=== PATIENT | female | born 1975 | race Caucasian/White ===

== ENCOUNTER 2020-03-21 10:14 | Outpatient (CLI) | payer BC, SELFPAY ==
--- NOTE | ~2020-03-21 | MM_ITS ---
EXAMINATION: MM screening thad BI w woodrow HISTORY: Screening TECHNIQUE: Craniocaudal and mediolateral oblique 3-D tomosynthesis images were obtained and synthetic 2-D images were generated. CAD analysis was submitted and interpreted. COMPARISON: Comparison to multiple prior studies sequentially, with oldest reviewed study dated 08/19. BREAST PARENCHYMAL COMPOSITION: There are scattered areas of fibroglandular density. FINDINGS: There is no evidence of suspicious mass, calcification, or architectural distortion to sugg est malignancy in either breast. There has been no suspicious interval change. IMPRESSION: 1. No mammographic evidence of malignancy. 2. Recommend routine screening mammography in one year. BI-RADS Category 1: Negative Reviewed, dictated and finalized at location A. OR SEAGRASS GATHERER
== END 2020-03-21 10:15 | disposition home or self-care (01) ==
PROVIDERS: PCP Family Medicine; Visit Provider Nurse Practitioner Obstetrics & Gynecology
DX: Z12.31 Encounter for screening mammogram for malignant neoplasm of breast (principal)
CPT/HCPCS: 77063; 77067

== ENCOUNTER 2020-07-12 07:21 | Observation (INO) | payer BC, SELFPAY ==
[2020-07-12] VITALS (21 sets, daily range): BP systolic 104–150; BP diastolic 69–89; PULSE 82–105; RESP 13–26; TEMP 36.1–36.8; O2SAT 93–98; BMI 41.6
--- NOTE | ~2020-07-12 | CT_ITS ---
EXAMINATION: CT brain wo con DATE: 07/12/2020 08:50 INDICATION: Encephalopathy with slowed responses. COVID positive. TECHNIQUE: Computed tomography (CT) of the head was performed without intravenous contrast. Sagittal and coronal reconstructions were performed. The mA was adjusted according to patient size. Iterative reconstruction technique was employed. The dose-length product was 605.33 mGy-cm. COMPARISON: None FINDINGS: No acute intracranial hemorrhage, acute infarction or abnormal extra axial fluid collection. Ventricl es are normal and symmetric. No mass/mass effect. The orbits, paranasal sinuses and mastoid air cells are normal. IMPRESSION: 1. Normal head CT. Reviewed, dictated and finalized at location A. IMPRESSION: 1. Normal head CT.
--- NOTE | ~2020-07-12 | XR_ITS ---
XR chest 1V portable DATE: 07/12/2020 07:56 INDICATION: Dyspnea, cough. Covid-positive patient. TECHNIQUE: Portable upright AP chest on 07/12/2020 at 0749 hours COMPARISON: None FINDINGS: There are are mild infiltrates in both lower lung zones. No pleural effusion. Heart size no rmal. No pneumothorax. IMPRESSION: Bilateral lower lung infiltrates Reviewed, dictated and finalized at location A.
--- NOTE | 2020-07-12 07:18 | ED.SOB ---
HPI - SOB/Dyspnea General Chief Complaint: Shortness of Breath/Dyspnea Stated Complaint: COVID +, SOB Source: patient and EMS Mode of arrival: EMS Limitations: no limitations History of Present Illness HPI Narrative: Patient is a 45-year-old female with a history of Covid who presents for evaluation of shortness of breath. Patient diagnosed 9 days previously with Covid. Patient states that her is also positive for Covid. She has had increasing shortness of breath at rest and worsening with exertion. Patient does not wear oxygen at home. Patient states that she could not catch her breath. EMS was called by the patient this morning, found to be 90% on room air. Patient transported in stable condition. Patient denying any pain. Patient states she has felt febrile and sweaty. No headache or chest pain. No vision changes. She reports diarrhea. She denies abdominal pain. She denies loss of sense of taste or smell. She does report mild rhinorrhea. Currently patient states she feels warm and that she may pass out. Vital signs stable on monitor. Related Data Home Medications Medication Instructions Recorded Confirmed clonazepam 0.125 mg PO DAILY 07/12/20 sertraline 25 mg PO DAILY 07/12/20 trazodone 50 mg PO BID 07/12/20 venlafaxine 25 mg PO BID 07/12/20 Allergies Allergy/AdvReac Type Severity Reaction Status Date / Time No Known Drug Allergies Allergy Verified 07/12/20 08:35 Review of Systems Review of Systems: Narrative: CONSTITUTIONAL: Reports fever, chills, diaphoresis EYES: Denies visual changes, redness, or discharge. ENT: Reports rhinorrhea and congestion CARDIOVASCULAR: Denies chest pain, palpitations, or edema. RESPIRATORY: Reports cough and shortness of breath GASTROINTESTINAL: Denies abdominal pain, nausea, vomiting, reports diarrhea GENITOURINARY: Denies dysuria or hematuria. SKIN: Denies rash or itching. MUSCULOSKELETAL: Denies back pain, joint pain, reports myalgias NEUROLOGIC: Denies headache, numbness, or weakness. [facility] Social History Social History Gender identity (if verbalized by the patient): Female Exam Narrative: Exam Narrative: GENERAL: Awake, alert, conversant, diaphoretic HEAD: Normocephalic, atraumatic. EYES: PERRLA and EOMI. ENT: Nares clear, no rhinorrhea or epistaxis. Mucous membranes moist. NECK: Supple. CHEST:Tachypnea, Borderline hypoxia, able to speak in full sentences, no wheezing or crackles noted HEART: Regular rate, sinus rhythm ABDOMEN:Non distended, non tender EXTREMITIES: Normal range of motion. No edema. SKIN: Warm, dry, no rash. NEURO:No focal deficits. Alert and oriented x3 Course Vital Signs Vital signs: Vital Signs Temperature 36.8 C 07/12/20 07:13 Pulse Rate 104 H 07/12/20 07:13 Respiratory Rate 20 07/12/20 07:13 Blood Pressure 104/76 07/12/20 07:13 Pulse Oximetry 95 07/12/20 07:13 Temperature 36.8 C 07/12/20 07:13 Pulse Rate 92 07/12/20 09:56 Respiratory Rate 18 07/12/20 09:56 Blood Pressure 114/82 07/12/20 09:12 Pulse Oximetry 98 07/12/20 09:56 MDM - SOB/Dyspnea MDM Narrative Medical decision making narrative: Patient presented for evaluation of shortness of breath in the setting of recently diagnosed Covid. At the time of assessment, patient is tachycardic, mildly hypoxic on room air with oxygen saturations ranging from 90 to 92% at rest. Patient with mild tachypnea. Coarse breath sounds bilaterally. She is quite diaphoretic. Patient denies any other pain. Patient's mental status seems somewhat off even though she is alert and oriented to person, place, and to time. She denies any headache, no focal deficits on exam. Did obtain a CT head without any acute intracranial normalities. Chest x-ray consistent with Covid pneumonia with bilateral lower lobe infiltrates. No severe electrolyte derangement. She does have mild hypokalemia. Patient refused to provide urinalysis in the ER. Perhaps there
--- NOTE | 2020-07-12 07:22 | ECG_ITS ---
Measurements Intervals [place] Rate: 89 P: 44 RI: 157 QRS: 7 QRSD: 82 T: 32 QT: 357 QTc: 435 Interpretive Statements SINUS RHYTHM BASELINE WANDER- I, II, AVR, AVL, AVF, V3-V6 BORDERLINE ECG Electronically Signed On 07-12-2020 8:30:06 CDT by Alexx Charles D.O.
[2020-07-12 07:45] LABS: Basophils Percent Auto 0.4 % (0.2-1.2); Eosinophils Percent Auto 0.6 % (0-4.4); Hemoglobin 15.4 g/dL (12.0-15.0); Immature Granulocyte Absolute 0.03 K/mm3 (0.00-0.031); Immature Granulocyte Percent A 0.6 % (0-0.5); Lymphocytes Absolute Auto 0.79 K/mm3 (0.9-3.2); Lymphocytes Percent Auto 16.2 % (18.3-44.2); Mean Corpuscular HGB Conc 33.5 g/dl (32-36); Mean Corpuscular Hemoglobin 28.9 pg (26-34); Mean Corpuscular Volume 86.3 fl (80-100); Mean Platelet Volume 11.4 fl (7.4-10.4); Monocytes Absolute Auto 0.4 K/mm3 (0.1-0.6); Monocytes Percent Auto 7.4 % (2.6-8.5); Neutrophils Absolute Auto 3.7 K/mm3 (1.3-6.7); Neutrophils Percent Auto 74.8 % (45.5-73.1); Platelet Count Result 156 k/mm3 (150-375); Red Blood Count 5.33 M/mm3 (4.2-5.4); Red Cell Distribution Width 13.9 % (11.5-14.5); White Blood Count 4.9 K/mm3 (4.5-10.0)
[2020-07-12 07:55] LABS: INR 0.9; Prothrombin Time 12.4 Seconds (11.1-14.7)
[2020-07-12 07:56] LABS: Partial Thromboplastin Time 31.6 SECONDS (22.3-36.8)
[2020-07-12 07:58] LABS: Alanine Aminotransferase 34 U/L (4-35); Albumin Level 4.1 g/dL (3.5-5.1); Alkaline Phosphatase 94 U/L (38-126); Anion Gap 10 mmol/L (8-16); Aspartate Amino Transferase 57 U/L (14-36); Bilirubin,Total 0.4 mg/dL (0.2-1.3); Blood Urea Nitrogen 9 mg/dL (7-17); CRP 1.5 mg/dL (<1.0); Calcium 8.7 mg/dL (8.4-10.2); Carbon Dioxide 26 mmol/L (22-30); Chloride 103 mmol/L (98-107); Estimated CRCL calculation 82 ml/min; Estimated Glomerular Filt Rate > 60; Glucose 140 mg/dL (65-105); Potassium 3.2 mmol/L (3.4-5.0); Sodium 139 mmol/L (137-145)
[2020-07-12 08:06] LABS: Troponin I < 0.012 ng/mL (0.000-0.034)
--- NOTE | 2020-07-12 08:49 | PC.NURSE ---
Attempted to medicate pt, pt found to be in ct, will medicate upon her return.
[2020-07-12] MEDS: POTASSIUM CHLORIDE 20 MEQ PACKET (FOR LIQUID) 40 MEQ PO (08:52)
--- NOTE | 2020-07-12 08:58 | PC.NURSE ---
Pt attempting urine sample at this time.
--- NOTE | 2020-07-12 09:14 | PC.NURSE ---
Pt unable to provide urine sample at this time, refusing cath, will attempt hollis. Placed back on traffic monitor specialist.
--- NOTE | 2020-07-12 09:56 | PC.NURSE ---
pT UPDATED ON WAIT TIMES AND PLAN OF CARE, DENIES FURTHER CONCERNS, UP AND AMBULATORY TO COMODE, STEADY GAIT, ATTEMPTING URINE SAMPLE AT THIS TIME.
--- NOTE | 2020-07-12 10:18 | PC.NURSE ---
Family updated on pt admission order.
[2020-07-12 10:25] LABS: Add Urine Microscopic? YES; Appearance Urine Cloudy (Clear); Bacteria Urine Trace /hpf; Bilirubin Urine Negative (Negative); Blood Urine Negative (Negative); Color Urine Amber (Yellow); Glucose Urine UA Negative (Negative); Ketones Urine Trace mg/dL (Negative); Leukocyte Esterase Ur Negative LEU/UL (Negative); Mucus Urine Few /lpf; Nitrate Urine Negative (Negative); Protein Urine 2+ mg/dL (Negative); RBC Urine 0-2 /hpf (0-2); Specific Grav Ur 1.028 (1.001-1.035); Squamous Epithelial Cell Urine Many /hpf (Few); Urobilinogen Urine Negative mg/dL (<2.0); WBC Urine 21-30 /hpf
[2020-07-12 10:33] LABS: Amphetamine Screen Urine Negative (Negative); Barbiturate Screen Urine Negative (Negative); Benzodiazepines Screen Urine Positive (Negative); Cannabinoid Screen Urine Negative (Negative); Cocaine Screen Urine Negative (Negative); Methadone Screen Urine Negative (Negative); Opiate Screen Urine Negative (Negative); Phencyclidine Screen Urine Negative (Negative)
--- NOTE | 2020-07-12 11:31 | ADMGEN ---
This patient, Aurea Sharma, was admitted to [facility] 1132. Patient/family oriented to hospital policies and general routines including ID bracelet, bed and alarms, visiting hours, pain management, procedures, bathroom and other care routines, personal items, smoking policy, room service/diet, and visiting hours. Information on how to activate the Rapid Response Team has been discussed. Patient/Family are encouraged to report perceived risks to care and to ask questions if they do not understand what they are told or what they should do.
--- NOTE | 2020-07-12 13:15 | PM.IMHP ---
H&P: HPI History of Present Illness Date/Time: 07/12/20 13:45 Chief Complaint: Shortness of breath. Narrative: This is a 45-year-old female with depression and anxiety who presented to the emergency department earlier today via EMS from home with complaints of shortness of breath. She started to feel bad on SaturdayJuly 01 with multiple symptoms to include rhinorrhea, dry cough, body aches, fever, sweats, and diarrhea. Two days later she tested positive for COVID-19 and unfortunately she has continued to feel poorly. This morning she had a significant coughing jag to the point where she felt as though she could not get in any air and she called 911 and on their arrival her SpO2 was reportedly 90% on room air. It is my understanding that she is being admitted because her O2 saturations drop with ambulation however that is not reflected in her EMR. At the time of my evaluation she is sitting up in bed and is picking at the food on her tray. She tells me she has no appetite but denies anosmia and dysgeusia. She goes on to say that her mother at the end of April and it sounds as though she has had a poor appetite since then. She has not had vomiting and she has not had any diarrhea since admission. No chest pain or pleuritic pain. She denies lower extremity edema, calf pain, and history of venous thromboembolism. Review of Systems Review of Systems: Narrative: Twelve systems were reviewed with pertinent positives and negatives as per HPI. She has had a mild headache. No significant sore throat. Weight has remained stable. Denies dysuria. No suicidal ideation but she does admit to being quite depressed. She also is anxious. Except as documented, all other systems were reviewed and are negative. [facility] Past Medical History Medical History (Updated 07/12/20 @ 14:04 by Meme Díaz PA-C) Anxiety Depression Surgical History Surgical History (Updated 07/12/20 @ 21:12 by Meme Díaz PA-C) History of ankle surgery Bilateral tarsal tunnel surgery. History of partial hysterectomy Family History Family History (Updated 07/12/20 @ 21:13 by Meme Díaz PA-C) Other Diabetes mellitus Social History Social History (Updated 07/12/20 @ 21:13 by Meme Díaz PA-C) Social History: Surrogate decision maker: Ambrosio Sharma, . Code status: Code. Smoking status: Never smoker Alcohol intake: never Substance use: never Additional living arrangements comments: The patient lives in [place] with her . They have grown children. Additional occupation/education comments: Unemployed. Gender identity (if verbalized by the patient): Female Spiritual care concerns: No Meds Home Medications and Allergies Home Medications Medication Instructions Recorded Confirmed Type clonazepam 0.125 mg PO DAILY 07/12/20 07/12/20 History sertraline 25 mg PO DAILY 07/12/20 07/12/20 History trazodone 50 mg PO BID 07/12/20 07/12/20 History venlafaxine 25 mg PO BID 07/12/20 07/12/20 History Allergies Allergy/AdvReac Type Severity Reaction Status Date / Time No Known Allergies Allergy Verified 07/12/20 11:57 Vital Signs Vital Signs - 24 hr 07/12/20 07:13 07/12/20 07:24 07/12/20 07:39 Temperature 98.3 F Pulse Rate 104 H 91 89 Respiratory Rate 20 16 Blood Pressure 104/76 Pulse Oximetry 95 94 93 07/12/20 07:40 07/12/20 07:45 07/12/20 08:08 Temperature Pulse Rate 87 85 99 Respiratory Rate 13 17 20 Blood Pressure 106/71 Pulse Oximetry 93 93 94 07/12/20 08:15 07/12/20 09:11 07/12/20 09:12 Temperature Pulse Rate 92 92 96 Respiratory Rate 18 16 21 H Blood Pressure 114/82 Pulse Oximetry 96 96 95 07/12/20 09:15 07/12/20 09:56 07/12/20 10:05 Temperature Pulse Rate 94 92 104 H Respiratory Rate 16 18 26 H Blood Pressure Pulse Oximetry 95 98 97 07/12/20 10:21 07/12/20 10:36 07/12/20 10:45 Temperature Pulse Rat
[2020-07-12 14:32] LABS: Alveolar/Arterial O2 Gradient 40.7 mmHg; Base Excess ABG 0.1 mEq/l (+/-2.0); Carboxyhemoglobin 0.3 % THb (0-2.0); Fractional Inspired Oxygen 21 %; HCO3 ABG 24.2 mEq/l (22.0-26.0); Methemoglobin ABG 0.3 %THb (0-1.5); Oxyhemoglobin 91.8 % THb (90.0-100.0); PCO2 ABG 37.7 mmHg (35.0-45.0); PO2 ABG 63.9 mmHg (80.0-100.0); PO2 FiO2 Ratio Arterial Blood 3.04 %; Reduced Hemoglobin 7.6 %THb (0-5.0); Total Hemoglobin 15.5 g/dL (12.0-18.0); pH ABG 7.425 (7.350-7.450)
[2020-07-12 14:33] LABS: Device ROOM AIR; Modified Allen's Test Pass; Site Drawn LEFT RADIAL
[2020-07-12 14:38] LABS: Lactate Dehydrogenase 656 U/L (313-618); Magnesium 2.4 mg/dL (1.6-2.3); Potassium 4.3 mmol/L (3.4-5.0)
[2020-07-12 14:45] LABS: Hemoglobin A1C 5.5 % (<5.7)
[2020-07-12] MEDS: ENOXAPARIN 40 MG/0.4 ML SYRINGE SUB-Q (17:26)
[2020-07-12] MEDS: guaiFENesin 600 MG/DEXTROMETHORPHAN 30 MG SR TAB 12 HR 1 TAB PO (18:12)
[2020-07-12] MEDS: VENLAFAXINE HCL 25 MG TABLET PO (20:20)
[2020-07-12] MEDS: traZODone HCL 50 MG TABLET PO (20:20)
[2020-07-12] MEDS: SODIUM CHLORIDE 0.9% IV 1,000 ML 100 ML IV CONT (22:57)
[2020-07-13] VITALS: BP 133/76; PULSE 79; RESP 18; TEMP 36.8; O2SAT 93
[2020-07-13 04:00] VITALS: BP 157/79; PULSE 99; RESP 18; TEMP 36.2; O2SAT 92
[2020-07-13] MEDS: SERTRALINE HCL 25 MG TABLET PO (07:58)
[2020-07-13] MEDS: VENLAFAXINE HCL 25 MG TABLET PO (07:58)
[2020-07-13] MEDS: traZODone HCL 50 MG TABLET PO (07:58)
[2020-07-13 08:00] VITALS: BP 117/73; PULSE 84; RESP 16; TEMP 36.6; O2SAT 94
[2020-07-13] MEDS: clonazePAM (*CRX) 0.25 MG TABLET 0.125 MG PO (08:00)
[2020-07-13 08:28] VITALS: PULSE 84; RESP 18; O2SAT 94
--- NOTE | 2020-07-13 12:23 | PM.DS ---
DS: Admitting Diagnosis Admitting Diagnosis Admitting Diagnosis: COVID pneumonia Hypokalemia Major depressive disorder General anxiety disorder DS: Discharge Diagnosis Discharge Diagnosis (1) Hypokalemia: Code(s): E87.6 - Hypokalemia Status: Acute (2) Depression with anxiety: Code(s): F41.8 - Other specified anxiety disorders Status: Acute (3) COVID-19: Code(s): U07.1 - COVID-19 Status: Acute (4) Pneumonia due to 2019-nCoV: Code(s): U07.1 - COVID-19; J12.82 - Pneumonia due to coronavirus disease 2019 Status: Acute (5) Hearing impairment: Code(s): H91.90 - Unspecified hearing loss, unspecified ear Status: Acute DS: Summary Hospital Course Reason for hospitalization: Shortness of breath Hospital Course: 45-year-old female admitted with shortness of breath and recent positive test for COVID in the outpatient setting. She was monitored overnight. Patient remained stable did not require oxygen or further treatment with dexamethasone. Her inflammatory markers were not significantly elevated at the time of her admission. Call placed to spouse to confirm patient baseline mental status. He states that he spoke with her earlier today and that she seemed normal to him. She is hard of hearing and reads lips. He does admit that she has not been taking her [facility] since she became ill with the Coronavirus. Patient is discharged home in stable condition indications to quarantine for 14 more days prior to returning to normal activity. Additionally she was given indications follow-up with her primary care physician to be compliant with her home medications. Status at Discharge Functional status at discharge: independent ambulation Overall status at discharge: patient is back to baseline Time Spent with Patient Time attestation: Total time spent providing and/or coordinating discharge services: Time spent: Greater than 30 minutes DS: Data Data Completed and Pending Labs on day of discharge: Labs from last 24 hours 07/12/20 07/12/20 07/12/20 14:26 14:17 14:17 D-Dimer Puncture Site Left radial ABG pH 7.425 ABG pCO2 37.7 ABG pO2 63.9 L ABG PO2/FiO2 Ratio 3.04 ABG HCO3 24.2 ABG O2 Saturation 93.0 L ABG O2 Content 20.0 ABG Base Excess 0.1 A-a Gradient 40.7 Oxyhemoglobin 91.8 Carboxyhemoglobin 0.3 Methemoglobin 0.3 Reduced Hemoglobin 7.6 H Total Hemoglobin 15.5 O2 Delivery Device Room air O2 Liters/Min Not Reportable FiO2 21 Potassium 4.3 Hemoglobin A1c 5.5 Magnesium 2.4 H Ferritin Lactate Dehydrogenase 07/12/20 07/12/20 07/12/20 14:17 14:17 14:17 D-Dimer 0.30 Puncture Site ABG pH ABG pCO2 ABG pO2 ABG PO2/FiO2 Ratio ABG HCO3 ABG O2 Saturation ABG O2 Content ABG Base Excess A-a Gradient Oxyhemoglobin Carboxyhemoglobin Methemoglobin Reduced Hemoglobin Total Hemoglobin O2 Delivery Device O2 Liters/Min FiO2 Potassium Hemoglobin A1c Magnesium Ferritin 629.00 H Lactate Dehydrogenase 656 H Discharge Plan Discharge Attending physician on discharge: Tessa Salazar Discharging Clinician: Tessa Salazar Anticipated Discharge Date/Time: 07/13/20 14:00 Patient Disposition: Home, Self-Care Activity: as tolerated Diet: as tolerated Discharge Instructions: COVID Patient Instructions: Antibiotic Form, COVID-19 (Coronavirus Disease 2019) (GEN) Stand Alone Forms: General Discharge Information Follow-up/Referrals: Annie,Deanna Romero MD [Primary Care Provider] - Discharge Medications: New Mucinex DM 30-600 mg Tablet Extended Release 12 Hr 1 tablet PO Q12HR PRN (Reason: Cough) Qty: 10 RF: 0 Continued trazodone 50 mg Tablet 50 mg PO BID RF: 0 venlafaxine 25 mg Tablet 25 mg PO BID RF: 0 sertraline 25 mg Tablet 25 mg P
== END 2020-07-13 14:16 | disposition home or self-care (01) ==
LOC: ANHED 10:00 → ANH3MEDSUR 14:51
PROVIDERS: Physician Assistant; Admitting Provider Internal Medicine; Emergency Provider Emergency Medicine; PCP Family Medicine; Visit Provider Hospitalist
DX: U07.1 COVID-19 (principal); J12.82 Pneumonia due to coronavirus disease 2019; E87.6 Hypokalemia; F41.8 Other specified anxiety disorders; H91.90 Unspecified hearing loss, unspecified ear; R06.02 Shortness of breath; Z79.899 Other long term (current) drug therapy
CPT/HCPCS: 36415; 36600; 70450; 71045; 80053; 80307; 81001; 82375; 82728; 82805; 83036; 83050; 83615; 83735; 84132; 84484; 85025; 85380; 85610; 85730; 86140; 87086; 87088; 93005; 96372; 96374; 99285; A9270; G0378; J1100; J1650; J7030

== ENCOUNTER 2023-04-10 14:22 | Outpatient (CLI) | payer OTHER, SELFPAY ==
--- NOTE | ~2023-04-10 | MM_ITS ---
EXAMINATION: MM screening thad BI w woodrow HISTORY: Screening TECHNIQUE: Craniocaudal and mediolateral oblique 3-D tomosynthesis images were obtained and synthetic 2-D images were generated. CAD analysis was submitted and interpreted. COMPARISON: Comparison to multiple prior studies sequentially, with oldest reviewed study dated 02/24. BREAST PARENCHYMAL COMPOSITION: Breast composed of scattered areas of fibroglandular density FINDINGS: There is no evidence of suspicious mass, calcification, or architectural distortion to sugg est malignancy in either breast. There has been no suspicious interval change. IMPRESSION: 1. No mammographic evidence of malignancy. 2. Recommend routine screening mammography in one year. BI-RADS Category 1: Negative Reviewed, dictated and finalized at location A. ID [employer] OPERATOR
== END 2023-04-10 14:23 | disposition home or self-care (01) ==
LOC: ANHIMG 14:26
PROVIDERS: PCP Family Medicine; Visit Provider Nurse Practitioner Obstetrics & Gynecology
DX: Z12.31 Encounter for screening mammogram for malignant neoplasm of breast (principal)
CPT/HCPCS: 77063; 77067

== ENCOUNTER 2024-05-12 14:05 | Outpatient (CLI) | payer OTHER, SELFPAY ==
--- NOTE | ~2024-05-12 | MM_ITS ---
EXAMINATION: MM screening thad BI w woodrow HISTORY: Screening TECHNIQUE: Craniocaudal and mediolateral oblique 3-D tomosynthesis images were obtained and synthetic 2-D images were generated. CAD analysis was submitted and interpreted. COMPARISON: Comparison to multiple prior studies sequentially, with oldest reviewed study dated 02/24. BREAST PARENCHYMAL COMPOSITION: Not dense: There are scattered areas of fibroglandular density. FINDINGS: There is no evidence of suspicious mass, calcification, or architectural distortion to sugg est malignancy in either breast. There has been no suspicious interval change. IMPRESSION: 1. No mammographic evidence of malignancy. 2. Recommend routine screening mammography in one year. BI-RADS Category 1: Negative Reviewed, dictated and finalized at location B. [employer]
--- OUTSIDE RECORDS SUMMARY | 2024-05-12 14:08 | XMS_ITS | Clinical Summary ---
Author Organization [facility] [employer] Address [address] [place] [address] Care Team Providers Care Saw Filer Name Role Phone Unavailable Primary Care Provider Unavailabl e Source Comments [facility] [facility],non-owned Affiliates and Associated Physician Practices is amultiple site organization consisting of ambulatory clinics and hospital sitesin [place], [place], [place] and [place]. This disclosure is being madepursuant to the Care Everywhere program and may not contain all information available regarding this patient. Last updated 17.[facility] [employer] [facility] Social History Tobacco Use Types Packs/Day Years Used Date Smoking Tobacco: Never Assessed Sex and Gender Information Value Date Recorded Sex Assigned at Not on file Gender Identity Not on file Sexual Orientation Not on file Plan of Treatment Health Maintenance Due Date Last Done Comments COLOGUARD (AGES 45-75) - COL ON CA SCREENING 1975 COLON MONITORING 1975 COLONOSCOPY - COLON CA SCREENING 1975 CT COLONOGRAPHY - COLON CA SCREENING 1975 Colorectal Cancer Screening 1975 FIT - COLON CA SCREENING 1975 FLEX SIG - COLON CA SCREENING 1975 LIPID TESTING 1975 MAMMOGRAM 1975 PAP SMEAR 1975 HIV SCREENING 1990 HEPATITIS C SCREENING 01/22/1993 DTAP/TDAP/TD VACCINES (1 - Tdap) 1994 HEPATITIS B VACCINE (1 of 3 - 19+ 3-dose series) 1994 COVID-19 VACCINE (2023-2 5 season) 2023 INFLUENZA VACCINE (#1) 2023 DEPRESSION SCREENING 03/25/2024 ZOSTER VACCINE (1 of 2) 2025 HIB VACCINE Aged Out No longer eligi ble based on patient's age to complete this topic HPV VACCINE Aged Out No longer eligi ble based on patient's age to complete this topic MENINGOCOCCAL (Group B) VACCINE Aged Out No longer eligible based on patient's age to complete this topic MENINGOCOCCAL VACCINE Aged Out No ran roger eligible based on patient's age to complete this topic PNEUMOCOCCAL VACCINE Aged Out No long er eligible based on patient's age to complete this topic
--- OUTSIDE RECORDS SUMMARY | 2024-05-12 14:08 | XMS_ITS | Patient Health Summary ---
Author Organization [facility] Address [address] [place] [address] Care Team Providers Care Flat Cutter Name Role Phone Unavailable Primary Care Provider Unavailabl e Note from [facility],non-owned Affiliates and Associated Physician Practices is amultiple site organization consisting of ambulatory clinics and hospital sitesin [place], [place], [place] and [place]. This disclosure is being madepursuant to the Care Everywhere program and may not contain all information available regarding this patient. Last updated 17.[facility] Social History Tobacco Use Types Packs/Day Years Used Date Smoking Tobacco: Never Assessed Sex and Gender Information Value Date Recorded Sex Assigned at Not on file Gender Identity Not on file Sexual Orientation Not on file Procedures * RUBELLA ANTIBODY IGG(Performed 03/30/2011) * RUBEOLA ANTIBODY IGG(Performed 03/30/2011) * MUMPS ANTIBODY IGG(Performed 03/30/2011) * HEPATITIS B SURFACE ANTIBODY(Performed 03/30/2011) Results * (ABNORMAL) RUBEOLA ANTIBODY IGG (03/30/2011 2:43 PM AUDIT DIRECTOR) Measles (Rubeola) Antibody IgG 5.1(H) SEE BELOW IV [facility] Comment: <0.9 Negative presumed non-immune >=0.9 to <1.1 Equivocal >=1.1 Positive presumed immune Interpretation Rubeola [facility] Comment: When equivocal results are obtained, another specimen should be collected 10 to 14 days later, and tested in parallel with the initial specimen. If the second specimen is also equivocal, the patient is negative for primary or recent infection, and equivocal for antibody status. If the second sample is positive, the patient can be considered to have a primary infection. BLOOD SPECIMEN / Unknown 03/30/2011 2:43 PM AUDIT DIRECTOR 03/30/2011 7:25 PM AUDIT DIRECTOR Provider Unknown LAB - CHEMISTRY RACHEL ZARATE Performing Organization Address City/[facility] Co de Phone Number [facility] [address] [place] [address] * (ABNORMAL) MUMPS ANTIBODY IGG (03/30/2011 2:43 PM AUDIT DIRECTOR) Mumps Virus Antibody IgG 1.5(H) SEE BELOW IV [facility] Comment: <0.9 Negative presumed non-immune >=0.9 to <1.1 Equivocal >=1.1 Positive presumed immune BLOOD SPECIMEN / Unknown 03/30/2011 2:43 PM AUDIT DIRECTOR 03/30/2011 7:25 PM AUDIT DIRECTOR Provider Unknown LAB - CHEMISTRY ORDE ELLIOT Performing Organization Address [facility] Co de Phone Number [facility] [address] [place] [address] * RUBELLA ANTIBODY IGG (03/30/2011 2:43 PM AUDIT DIRECTOR) Rubella Antibody 126.2 SEE BELOW IU/ml [facility] Comment: =>10.0 Positive-Immune 5.0-9.9 Suggest Repeat Testing <5.0 Negative-Nonimmune BLOOD SPECIMEN / Unknown 03/30/2011 2:43 PM AUDIT DIRECTOR 03/30/2011 7:25 PM AUDIT DIRECTOR Provider Unknown LAB - SEROLOGY ORDER NOBLE Performing Organization Address [facility] Co de Phone Number [facility] [address] [place] [address] * HEPATITIS B SURFACE ANTIBODY (03/30/2011 2:43 PM AUDIT DIRECTOR) Pathologist [facility] Hepatitis B Virus Surface Antibody Reactive Nonreactive [facility] BLOOD SPECIMEN / Unknown 03/30/2011 2:43 PM AUDIT DIRECTOR 03/30/2011 7:25 PM AUDIT DIRECTOR Provider Unknown LAB - CHEMISTRY ORDE ELLIOT Performing Organization Address [facility] Co de Phone Number [facility] [address] [place] [address]
--- OUTSIDE RECORDS SUMMARY | 2024-05-12 14:08 | XMS_ITS | Referral Summary ---
Author Organization [facility] Address [address] [place] [address] Care Team Providers Care Provider Relations Coordinator Name Role Phone Unavailable Primary Care Provider Unavailabl e Source Comments [facility],non-owned Affiliates and Associated Physician Practices is amultiple site organization consisting of ambulatory clinics and hospital sitesin [place], [place], [place] and [place]. This disclosure is being madepursuant to the Care Everywhere program and may not contain all information available regarding this patient. Last updated 17.[facility] [employer] Social History Tobacco Use Types Packs/Day Years Used Date Smoking Tobacco: Never Assessed Sex and Gender Information Value Date Recorded Sex Assigned at Not on file Gender Identity Not on file Sexual Orientation Not on file Plan of Treatment Not on file
--- OUTSIDE RECORDS SUMMARY | 2024-05-12 14:08 | XMS_ITS | Data Portability ---
Author Organization [place] - [facility] [employer], Main Office Address [address] [place] [address] Assessment No assessment recorded. Plan of Treatment Reminders Order Date Submit Date Provider Last Modified By Organization Details Last Modified Time Details Appointments Follow Up 15 2024 02:00P CARYN Aldridge Not available Not available Not available Lab noninvasi ve colorecta l cancer DNA + occult blood screening , QL, stool 2022 023 [id number] [facility] (Cologuard Orders Only), [address], [address], [place], [address], 01/25/2023 09:08:43 HbA1c (hemoglob in A1c), blood 2022 023 [facility], [address], [place], [address], 01/22/2023 03:22:56 lipid panel, serum 2022 023 [facility], [address], [place], [address], 01/22/2023 03:22:54 CMP, serum or plasma 2022 023 [facility], [address], [place], [address], 01/22/2023 03:22:55 Referral None recorded. Procedures None recorded. Surgeries None recorded. Imaging MAMMO, screening , digital, bilateral [id number] [place] [address] (Mammography) , [address], [place], [address], 01/23/2024 10:04:06 Medication Orders pregabali n 200 mg capsule 2023 024 [id number], [address], [place], [address], 01/09/2024 15:13:38 atorvasta tin 20 mg tablet 2023 024 [id number], [address], [place], [address], 01/09/2024 15:18:43 amoxicill in 875 mg-potass ium clavulana te 125 mg tablet 2022 023 [id number], [address] , [place], [address], 01/09/2024 15:04:12 promethaz ine-DM 6.25 mg-15 mg/5 mL oral syrup 2022 023 [id number], [address] , [place], [address], 01/09/2024 15:05:26 phentermi ne 37.5 mg tablet 2022 023 [id number] [address], [place], [address], 01/09/2024 15:05:09 Wegovy 0.25 mg/0.5 mL subcutane ous pen injector 2022 023 [id number], [address] , [place], [address], 01/09/2024 15:06:11 Patient TargetsNo targets recorded. Patient InstructionsNo instructions recorded. Reason for Referral None Reported. Results Created Date Observation Date Name Description Value Unit Range Abnormal Flag Note LastModifiedBy Organization Detail LastModifiedTime 01/07/2001/07/2024 COLOG UARD cologuard result Cancel led - Order d not applic able Not Available [facility] (Cologuard Orders Only) [address], [place], [address], 01/07/2024 07:48:23 07/18/19 22 07/18/2021 HEMOG LOBIN A1C hemoglobin A1C 5.1 %_of_ total _HGB <5.7 normal For the purpo se of scree ariella for the prese nce of diabe erma: <5.7% Consi stent with the absen ce of diabe erma 5.7-6 .4% Consi stent with incre ased risk for diabe erma (pred iabet es) > or =6.5% Consi stent with diabe erma This assay resul t is consi stent with a decre ased risk of diabe erma. Curre ntly, no conse nsus exist s bruce starr use of hemog lobin A1c for diagn osis of diabe erma in child mg. Accor ding to Ameri can Diabe erma Assoc iatio n (ADA) guide lines , hemog lobin A1c <7.0% repre sents optim al contr ol in non-p regna nt diabe tic patie nts. Diffe rent metri cs may apply to speci fic patie nt popul ation s. Stand ards of Medic al Care in Diabe erma(A DA). Not Available [facility] [address] [place], [address], 07/18/2021 06:32:37 07/18/19 22 07/18/2021 VITAM IN D,25- OH,TO MITRA,I A vitamin D,25-oh,tota l,ia 78 NG/mL 30-100 normal Vitam in D Statu s 25-OH Vitam in D: Defic iency : <20 ng/mL Insuf ficie ncy: 20 - 29 ng/mL Optim al: > or = 30 ng/mL For 25-OH Vitam in D testi ng on patie nts on D2-izaguirre pplem entat ion and patie nts for whom quant itati on of D2 and D3 fract ions is requi red, the [facility] eD(TM ) 25-OH VIT D, (D2,D 3), LC/MS /MS is recom manuela d: order code 21970 (ho ents >2yrs ). See Note 1 Note 1 For addit ional infor lindsay humphreys e refer to http: //[facility] ellie Padilla stDia gnost ics.c om/fa q/FAQ 199 (This link is being provi ded for infor bernardo clark/ educa samantha l purpo ses only. ) Not Available [address], [address], 07/18/2021 06:32:36 07/18/19 22 07/18/2021 COMPR EHENS DEQUAN METAB OLIC PANEL glucose 113 mg/dL 65-99 high Fasti ng refer ence inter jacob For someo ne witho ut known diabe erma, a gluco se value betwe en 100 and 125 mg/dL is consi stent with predi abete s and shoul d be confi rmed with a follo w-up test. Not Available [address], [address], 07/18/2021 06:32:36 07/18/19 22 07/18/2021 COMPR EHENS DEQUAN METAB OLIC PANEL urea nitrogen (BUN) 11 mg/dL 7-25 normal Not Available [email or web address] [address], [address], 07/18/2021 06:32:36 07/18/19 22 07/18/2021 COMPR EHENS DEQUAN METAB OLIC PANEL creatinine 0.81 mg/dL 0.50-1 .10 normal Not Available [facility] [employer] [address], [address], 07/18/2021 06:32:36 07/18/19 22 07/18/2021 COMPR EHENS DEQUAN METAB OLIC PANEL eGFR non-afr. nauruan 87 mL/mi n/1.7 3m2 > or = 60 normal Not Available [address], [address], 07/18/2021 06:32:36 07/18/19 22 07/18/2021 COMPR EHENS DEQUAN METAB OLIC PANEL eGFR 101 mL/mi n/1.7 3m2 > or = 60 normal Not Available [address], [address], 07/18/2021 06:32:36 07/18/19 22 07/18/2021 COMPR EHENS DEQUAN METAB OLIC PANEL BUN/creatini ne ratio not applic able (calc ) 6-22 Not Available [address], [address], 07/18/2021 06:32:36 07/18/19 22 07/18/2021 COMPR EHENS DEQUAN METAB OLIC PANEL sodium 140 mmol/ L 135-14 6 normal Not Available [address], [address], 07/18/2021 06:32:36 07/18/19 22 07/18/2021 COMPR EHENS DEQUAN METAB OLIC PANEL potassium 3.9 mmol/ L 3.5-5. 3 normal Not Available [address], [address], 07/18/2021 06:32:36 07/18/19 22 07/18/2021 COMPR EHENS DEQUAN METAB OLIC PANEL chloride 107 mmol/ L 98-110 normal Not Available [address], [address], 07/18/2021 06:32:36 07/18/19 22 07/18/2021 COMPR EHENS DEQUAN METAB OLIC PANEL carbon dioxide 26 mmol/ L 20-32 normal Not Available [address], [address], 07/18/2021 06:32:36 07/18/19 22 07/18/2021 COMPR EHENS DEQUAN METAB OLIC PANEL calcium 9.0 mg/dL 8.6-10 .2 normal Not Available [address], [address], 07/18/2021 06:32:36 07/18/19 22 07/18/2021 COMPR EHENS DEQUAN METAB OLIC PANEL protein, total 6.4 g/dL 6.1-8. 1 normal Not Available [address], [address], 07/18/2021 06:32:36 07/18/19 22 07/18/2021 COMPR EHENS DEQUAN METAB OLIC PANEL albumin 3.8 g/dL 3.6-5. 1 normal Not Available [address], [address], 07/18/2021 06:32:36 07/18/19 22 07/18/2021 COMPR EHENS DEQUAN METAB OLIC PANEL globulin 2.6 g/dL_ (calc ) 1.9-3. 7 normal Not Available [address], [address], 07/18/2021 06:32:36 07/18/19 22 07/18/2021 COMPR EHENS DEQUAN METAB OLIC PANEL albumin/glob ulin ratio 1.5 (calc ) 1.0-2. 5 normal Not Available [address], [address], 07/18/2021 06:32:36 07/18/19 22 07/18/2021 COMPR EHENS DEQUAN METAB OLIC PANEL bilirubin, total 0.1 mg/dL 0.2-1. 2 low Not Available [address], [address], 07/18/2021 06:32:36 07/18/19 22 07/18/2021 COMPR EHENS DEQUAN METAB OLIC PANEL alkaline phosphatase 64 U/L 31-125 normal Not Available [facility] [employer] [address], [address], 07/18/2021 06:32:36 07/18/19 22 07/18/2021 COMPR EHENS DEQUAN METAB OLIC PANEL AST 10 U/L 10-35 normal Not Available [address], [address], 07/18/2021 06:32:36 07/18/19 22 07/18/2021 COMPR EHENS DEQUAN METAB OLIC PANEL ALT 12 U/L 6-29 normal Not Available [address], [address], 07/18/2021 06:32:36 07/18/19 22 07/18/2021 LIPID PANEL , STAND DONTA cholesterol, total 211 mg/dL <200 high Not Available [address], [address], 07/18/2021 06:32:36 07/18/19 22 07/18/2021 LIPID PANEL , STAND DONTA HDL cholesterol 41 mg/dL > or = 50 low Not Available [address], [address], 07/18/2021 06:32:36 07/18/19 22 07/18/2021 LIPID PANEL , STAND DONTA triglyceride s 376 mg/dL <150 high If a non-f astin g speci men was colle cted, consi steven repea t trigl yceri de testi ng on a fasti ng speci men if clini jose d indic ated. Ambrosio karimi et al. J. of Clin. Lipid ol. 2015; 9:129 -169. Not Available [address], [address], 07/18/2021 06:32:36 07/18/19 22 07/18/2021 LIPID PANEL , STAND DONTA LDL-choleste rol 116 mg/dL _(luís c) high Refer ence range : <100 Khang able range <100 mg/dL for prima ry preve ntion ; <70 mg/dL for patie nts with CHD or diabe tic patie nts with > or = 2 CHD risk facto rs. LDL-C is now calcu lated using the Lucina n-Hop kins calcu estephania n, which is a valid ated novel metho d provi ding kavitha r accur acy than the Fried lauren equat ion in the estim ation of LDL-C . Lucina blount SS et al. DONALD. 2013; 310(1 8): 2061- 2068 (http ://ed ucati on.Ovonyx. Actions/f aq/FA Q164) Not Available [email or web address] [facility] [address] [place], [address], 07/18/2021 06:32:36 07/18/19 22 07/18/2021 LIPID PANEL , STAND DONTA chol/HDLC ratio 5.1 (calc ) <5.0 high Not Available [email or web address] [facility] [place] [address] [place], [address], 07/18/2021 06:32:36 07/18/19 22 07/18/2021 LIPID PANEL , STAND DONTA non HDL cholesterol 170 mg/dL _(luís c) <130 high For patie nts with diabe erma plus 1 major ASCVD risk facto r, treat ing to a non-H DL-C goal of <100 mg/dL (LDL- C of <70 mg/dL ) is consi layned a thertruman pemayte c optio n. Not Available [email or web address] [facility] [address] [place], [address], 07/18/2021 06:32:36 01/22/20 23 01/22/2023 LIPID PANEL (REFL ) cholesterol, total 184 mg/dL <200 normal Not Available [employer] [facility] [address] [place], [address], 01/22/2023 03:22:54 01/22/2001/22/2023 LIPID PANEL (REFL ) HDL cholesterol 53 mg/dL > or = 50 normal Not Available [facility] [id number] [place] [address], [address], 01/22/2023 03:22:54 01/22/2001/22/2023 LIPID PANEL (REFL ) triglyceride s 144 mg/dL <150 normal Not Available [email or web address] [facility] [address] [place] [address], [address], 01/22/2023 03:22:54 01/22/2001/22/2023 LIPID PANEL (REFL ) LDL-choleste rol 105 mg/dL _(luís c) high Refer ence range : <100 Khang able range <100 mg/dL for prima ry preve ntion ; <70 mg/dL for patie nts with CHD or diabe tic patie nts with > or = 2 CHD risk facto rs. LDL-C is now calcu lated using the Lucina n-Hop kins calcu estephania n, which is a valid ated novel tiffanieo d noé plummer r accur acy than the Fried lauren equat ion in the estim ation of LDL-C . Lucina blount SS et al. DONALD. 2013; 310(1 9): 2061- 2068 (http ://ed ucati on.Qu Nancy Night Zookeeper. com/f aq/FA Q164) Not Available [email or web address] [facility] [address] [place] [address], [address], 01/22/2023 03:22:54 01/22/2001/22/2023 LIPID PANEL (REFL ) chol/HDLC ratio 3.5 (calc ) <5.0 normal Not Available [employer] [facility] [address] [place] [address], [address], 01/22/2023 03:22:54 01/22/20 23 01/22/2023 LIPID PANEL (REFL ) non HDL cholesterol 131 mg/dL _(luís c) <130 high For patie nts with diabe erma plus 1 major ASCVD risk facto r, treat ing to a non-H DL-C goal of <100 mg/dL (LDL- C of <70 mg/dL ) is consi dered a thera peuti c optio n. Not Available [place] [address] [place], [address], 01/22/2023 03:22:54 01/22/2001/22/2023 COMPR EHENS DEQUAN METAB OLIC PANEL glucose 113 mg/dL 65-99 high Fasti ng refer ence inter jacob For someo ne witho ut known diabe erma, a gluco se value betwe en 100 and 125 mg/dL is consi stent with predi abete s and shoul d be confi rmed with a follo w-up test. Not Available [place] [address] [place], [address], 01/22/2023 03:22:55 01/22/2001/22/2023 COMPR EHENS DEQUAN METAB OLIC PANEL urea nitrogen (BUN) 8 mg/dL 7-25 normal Not Available [place] [address] [place], [address], 01/22/2023 03:22:55 01/22/2001/22/2023 COMPR EHENS DEQUAN METAB OLIC PANEL creatinine 1.00 mg/dL 0.50-0 .99 high Not Available [place] [address] [place], [address], 01/22/2023 03:22:55 01/22/2001/22/2023 COMPR EHENS DEQUAN METAB OLIC PANEL eGFR 70 mL/mi n/1.7 3m2 > or = 60 normal Not Available [place] [address] [place], [address], 01/22/2023 03:22:55 01/22/20 23 01/22/2023 COMPR EHENS DEQUAN METAB OLIC PANEL BUN/creatini ne ratio 8 (calc ) 6-22 normal Not Available [facility] [address] [address], [place], [address], 01/22/2023 03:22:55 01/22/2001/22/2023 COMPR EHENS DEQUAN METAB OLIC PANEL sodium 138 mmol/ L 135-14 6 normal Not Available [address], [address], 01/22/2023 03:22:55 01/22/2001/22/2023 COMPR EHENS DEQUAN METAB OLIC PANEL potassium 4.1 mmol/ L 3.5-5. 3 normal Not Available [address], [address], 01/22/2023 03:22:55 01/22/2001/22/2023 COMPR EHENS DEQUAN METAB OLIC PANEL chloride 101 mmol/ L 98-110 normal Not Available [address], [address], 01/22/2023 03:22:55 01/22/2001/22/2023 COMPR EHENS DEQUAN METAB OLIC PANEL carbon dioxide 29 mmol/ L 20-32 normal Not Available [address], [address], 01/22/2023 03:22:55 01/22/2001/22/2023 COMPR EHENS DEQUAN METAB OLIC PANEL calcium 9.1 mg/dL 8.6-10 .2 normal Not Available [address], [address], 01/22/2023 03:22:55 01/22/2001/22/2023 COMPR EHENS DEQUAN METAB OLIC PANEL protein, total 6.6 g/dL 6.1-8. 1 normal Not Available [address], [address], 01/22/2023 03:22:55 01/22/2001/22/2023 COMPR EHENS DEQUAN METAB OLIC PANEL albumin 4.0 g/dL 3.6-5. 1 normal Not Available [address], [address], 01/22/2023 03:22:55 01/22/20 23 01/22/2023 COMPR EHENS DEQUAN METAB OLIC PANEL globulin 2.6 g/dL_ (calc ) 1.9-3. 7 normal Not Available [address], [address], 01/22/2023 03:22:55 01/22/2001/22/2023 COMPR EHENS DEQUAN METAB OLIC PANEL albumin/glob ulin ratio 1.5 (calc ) 1.0-2. 5 normal Not Available [address], [address], 01/22/2023 03:22:55 01/22/2001/22/2023 COMPR EHENS DEQUAN METAB OLIC PANEL bilirubin, total 0.4 mg/dL 0.2-1. 2 normal Not Available [address], [address], 01/22/2023 03:22:55 01/22/20 23 01/22/2023 COMPR EHENS DEQUAN METAB OLIC PANEL alkaline phosphatase 71 U/L 31-125 normal Not Available [address], [address], 01/22/2023 03:22:55 01/22/2001/22/2023 COMPR EHENS DEQUAN METAB OLIC PANEL AST 12 U/L 10-35 normal Not Available [address], [address], 01/22/2023 03:22:55 01/22/20 23 01/22/2023 COMPR EHENS DEQUAN METAB OLIC PANEL ALT 16 U/L 6-29 normal Not Available [place] [id number] [place], [address], 01/22/2023 03:22:55 01/22/20 23 01/22/2023 HEMOG LOBIN A1C hemoglobin A1C 5.3 %_of_ total _HGB <5.7 normal For the purpo se of wally krishnan for the prese nce of diabe erma: <5.7% Consi stent with the absen ce of diabe erma 5.7-6 .4% Consi stent with incre ased risk for diabe erma (pred iabet es) > or =6.5% Consi stent with diabe erma This assay resul t is consi stent with a decre ased risk of diabe erma. Curre ntly, no conse nsus exist s regar matty use of hemog lobin A1c for diagn osis of diabe erma in child mg. Accor ding to Ameri can Diabe erma Assoc iatio n (ADA) guide lines , hemog lobin A1c <7.0% repre sents optim al contr ol in non-p regna nt diabe tic patie nts. Diffe rent metri cs may apply to speci fic patie nt popul ation s. Stand ards of Medic al Care in Diabe erma(A DA). Not Available [email or web address] [facility] [address] , [place], [address], 01/22/2023 03:22:56 03/26/19 24 03/26/2023 COMPR EHENS DEQUAN METAB OLIC PANEL glucose 117 mg/dL 65-99 high Fasti ng refer ence inter jacob For someo ne witho ut known diabe erma, a gluco se value betwe en 100 and 125 mg/dL is consi stent with predi abete s and shoul d be confi rmed with a follo w-up test. Not Available [facility] [address] [place], [address], 03/26/2023 18:00:28 03/26/19 24 03/26/2023 COMPR EHENS DEQUAN METAB OLIC PANEL urea nitrogen (BUN) 13 mg/dL 7-25 normal Not Available [place] [address] [place], [address], 03/26/2023 18:00:28 03/26/19 24 03/26/2023 COMPR EHENS DEQUAN METAB OLIC PANEL creatinine 0.99 mg/dL 0.50-0 .99 normal Not Available [address], [address], 03/26/2023 18:00:28 03/26/19 24 03/26/2023 COMPR EHENS DEQUAN METAB OLIC PANEL eGFR 70 mL/mi n/1.7 3m2 > or = 60 normal Not Available [address], [address], 03/26/2023 18:00:28 03/26/19 24 03/26/2023 COMPR EHENS DEQUAN METAB OLIC PANEL BUN/creatini ne ratio SEE NOTE: (calc ) 6-22 Not Repor lianne: BUN and Creat inine are withi n refer ence range . Not Available [address], [address], 03/26/2023 18:00:28 03/26/19 24 03/26/2023 COMPR EHENS DEQUAN METAB OLIC PANEL sodium 139 mmol/ L 135-14 6 normal Not Available [address], [address], 03/26/2023 18:00:28 03/26/19 24 03/26/2023 COMPR EHENS DEQUAN METAB OLIC PANEL potassium 4.1 mmol/ L 3.5-5. 3 normal Not Available [address], [address], 03/26/2023 18:00:28 03/26/19 24 03/26/2023 COMPR EHENS DEQUAN METAB OLIC PANEL chloride 104 mmol/ L 98-110 normal Not Available [address], [address], 03/26/2023 18:00:28 03/26/19 24 03/26/2023 COMPR EHENS DEQUAN METAB OLIC PANEL carbon dioxide 30 mmol/ L 20-32 normal Not Available [address], [address], 03/26/2023 18:00:28 03/26/19 24 03/26/2023 COMPR EHENS DEQUAN METAB OLIC PANEL calcium 9.4 mg/dL 8.6-10 .2 normal Not Available [address], [address], 03/26/2023 18:00:28 03/26/19 24 03/26/2023 COMPR EHENS DEQUAN METAB OLIC PANEL protein, total 6.4 g/dL 6.1-8. 1 normal Not Available [address], [address], 03/26/2023 18:00:28 03/26/19 24 03/26/2023 COMPR EHENS DEQUAN METAB OLIC PANEL albumin 3.8 g/dL 3.6-5. 1 normal Not Available [address], [place], [address], 03/26/2023 18:00:28 03/26/19 24 03/26/2023 COMPR EHENS DEQUAN METAB OLIC PANEL globulin 2.6 g/dL_ (calc ) 1.9-3. 7 normal Not Available [address], [address], 03/26/2023 18:00:28 03/26/19 24 03/26/2023 COMPR EHENS DEQUAN METAB OLIC PANEL albumin/glob ulin ratio 1.5 (calc ) 1.0-2. 5 normal Not Available [address], [address], 03/26/2023 18:00:28 03/26/19 24 03/26/2023 COMPR EHENS DEQUAN METAB OLIC PANEL bilirubin, total 0.3 mg/dL 0.2-1. 2 normal Not Available [place] [address] [place], [address], 03/26/2023 18:00:28 03/26/19 24 03/26/2023 COMPR EHENS DEQUAN METAB OLIC PANEL alkaline phosphatase 61 U/L 31-125 normal Not Available [facility] [employer] [place] [address] [place], [address], 03/26/2023 18:00:28 03/26/19 24 03/26/2023 COMPR EHENS DEQUAN METAB OLIC PANEL AST 15 U/L 10-35 normal Not Available [place] [address] [place], [address], 03/26/2023 18:00:28 03/26/19 24 03/26/2023 COMPR EHENS DEQUAN METAB OLIC PANEL ALT 16 U/L 6-29 normal Not Available [place] [address] [place], [address], 03/26/2023 18:00:28 04/10/19 24 04/10/2023 MAMMO , scree ariella, digit al, bilat eral No observ ation record ed. [place] [id number], [place], [address], 05/10/2023 12:17:11 Result Notes None recorded. Problems Name Problem SNOMED Code Status Onset Date Resolution Date Notes Provider Name and Address Organization Details Recorded Time Generalized headache 557670476 Active Not Available [employer] 3 08:11:09 Excessive thirst 72566840 Active Not Available [employer] 3 08:11:09 Insomnia 825084050 Active Not Available [employer] 3 08:11:09 Anxiety disorder 958577694 Active Not Available [employer] 3 08:11:09 Enlarged uterus 506705957 Active Not Available [employer] 3 08:11:09 Abdominal pain 63174932 Active Not Available [facility] 3 08:11:09 Generalized anxiety disorder 16884210 Active Not Available [facility] 3 08:11:09 Headache 60111699 Active Not Available [facility] 3 08:11:09 Anemia 659387754 Active Not Available [facility] 3 08:11:09 Adnexal tenderness 378317016 Active Not Available [facility] 3 08:11:09 Pain in calf 773076338 Active Not Available [facility] 3 08:11:09 Left lower quadrant pain 801142471 Active Not Available [facility] 3 08:11:09 Peripheral nerve disease 658632890 Active Not Available [facility] 3 08:11:09 Pain in pelvis 91275471 Active Not Available [facility] 3 08:11:10 Menometrorrha saima 585508080 Active Not Available [facility] 3 08:11:10 Depressive disorder 66822482 Active Not Available [facility] 3 08:11:10 Muscle pain 16221098 Active Not Available [facility] 3 08:11:10 Irregular periods 01352926 Active Not Available [facility] 3 08:11:10 Muscle fatigue 32197262 Active Not Available [facility] 3 08:11:10 Fatigue 82668789 Active Not Available [facility] 3 08:11:10 Primary fibromyalgia syndrome 67397943 Active Not Available [facility] 3 08:11:10 Hyperlipidemi a 22110879 Active 2022 Deanna Valencia MD [address], [place], [address] , [employer] [facility] [employer] 3 15:49:07 Obesity 930661513 Active 2022 Deanna Valencia MD [address], [place], [address] , [employer] [facility] [employer] [facility] 3 15:52:54 Serum creatinine above reference range 735640637 Active 2022 Emmanuel Fonseca RN null, [facility] [employer] [facility] 3 10:51:01 Acute sinusitis 83427570 Active 2022 CARYN King [address], [address], [place], [address] , [facility] [employer] [facility] [employer] [facility] 3 12:24:15 Screening mammography Active 2023 CARYN King [address], [address], [place], [address] , [facility] [employer] [facility] [employer] [facility] 4 15:15:24 Adult health examination Active 2023 CARYN King [address], [address], [place], [address] , [facility] [employer] [facility] [employer] [facility] 4 15:20:44 Problem Notes None recorded. Procedures Surgical History Date Name Laterality Status Provider Name and Address Organization Details Recorded Time procedure on tarsal bone completed Not Available [facility] 05/23/2022 08:07:34 Hysterectomy completed Not Available [facility] 05/23/2022 08:07:34 Imaging Results Imaging Date Name Status LastModified by Organiz ation Details LastModified Time 04/10/2023 MAMMO, screening, digital, bilateral completed [id number], [address], 05/10/2023 12:17:11 Procedure Notes None recorded. Medical Equipment None Reported. Allergies No known drug allergies Medications Name Sig Start Date Stop Date Status Note LastModified by Organization Details LastModified Time carisoprodo l 350 mg tablet Take 1 tablet 3 times a day by oral route for 30 days. active Not Available Not Available No t Available fluoxetine 40 mg capsule TAKE 1 CAPSULE BY MOUTH EVERY DAY 07/05 completed Not Available Not Available Not Available cyclobenzap rine 10 mg tablet TAKE 1 TABLET BY MOUTH THREE TIMES A DAY NEEDED 01/08 completed Not Available Not Available Not Available promethazin e-DM 6.25 mg-15 mg/5 mL oral syrup TAKE 5 ML BY MOUTH EVERY 4 HOURS NEEDED FOR 10 DAYS 01/08 completed Not Available Not Available Not Available venlafaxine ER 75 mg capsule,ext ended release 24 hr TAKE 1 CAPSULE BY MOUTH EVERY DAY active Not Available Not Available No t Available gabapentin 600 mg tablet TAKE ONE TABLET BY MOUTH THREE TIMES A DAY 10/02 completed Not Available Not Available Not Available atorvastati n 20 mg tablet TAKE 1 TABLET BY MOUTH EVERY DAY IN THE MORNING active Not Available Not Available No t Available atorvastati n 10 mg tablet TAKE 1 TABLET BY MOUTH EVERY DAY active Not Available Not Available No t Available azithromyci n 250 mg tablet Take 2 TABLET EVERY DAY by oral route for 1 day. Than 1 tablet for 4 days 09/09 completed Not Available Not Available Not Available alprazolam 1 mg tablet TAKE ONE TABLET BY MOUTH THREE TIMES DAILY NEEDED active Not Available Not Available No t Available hydrocodone 5 mg-acetamin ophen 325 mg tablet Take 1-2 TABLET EVERY4- 6 HOURS by oral route. active Not Available Not Available No t Available clonazepam 0.5 mg tablet TAKE 1 AND 1/2 TABLET BY MOUTH DAILY NEEDED 01/07 completed Not Available Not Available Not Available sertraline 100 mg tablet TAKE 2 TABLETS BY MOUTH EVERYDAY AT BEDTIME active Not Available Not Available No t Available clonazepam 1 mg tablet TK 1 T PO BID 01/07 completed Not Available Not Available Not Available phentermine 15 mg capsule 10/02 completed Not Available Not Available Not Available venlafaxine ER 150 mg capsule,ext ended release 24 hr TAKE 1 CAPSULE BY MOUTH EVERY DAY 01/08 completed Not Available Not Available Not Available topiramate 25 mg tablet 09/28 completed Not Available Not Available Not Available phentermine 37.5 mg tablet TAKE 1 TABLET BY MOUTH EVERY DAY 01/08 completed Not Available Not Available Not Available ciprofloxac in 500 mg tablet TAKE 1 TABLET EVERY 12 HOURS FOR 5 DAYS 07/05 completed Not Available Not Available Not Available sulfamethox azole 800 mg-trimetho prim 160 mg tablet Take 1 tablet every 12 hours by oral route for 5 days. active Not Available Not Available No t Available Mircette (28) 0.15 mg-0.02 mg (21)/0.01 mg (5) tablet Take 1 tablet every day by oral route. active Not Available Not Available No t Available tramadol 50 mg tablet Take 1-2 TABLET EVERY 6 HOURS by oral route. active Not Available Not Available No t Available oxycodone-a cetaminophe n 5 mg-325 mg tablet active Not Available Not Available No t Available gabapentin 800 mg tablet TAKE ONE TABLET BY MOUTH THREE TIMES DAILY active Not Available Not Available No t Available trazodone 100 mg tablet TAKE 2 TABLETS BY MOUTH ONCE EVERY NIGHT AT BEDTIME active Not Available Not Available No t Available amitriptyli ne 10 mg tablet active Not Available Not Available Not Available phenazopyri dine 100 mg tablet TAKE 1 TABLET BY MOUTH THREE TIMES DAILY active Not Available Not Available No t Available fluoxetine 10 mg capsule TAKE 3 CAPSULES BY MOUTH EVERY DAY 07/05 completed Not Available Not Available Not Available gabapentin 300 mg capsule Take 1 capsule 3 times a day by oral route. active Not Available Not Available No t Available zolpidem 5 mg tablet TAKE 1 TABLET BY MOUTH AT BEDTIME 09/09 completed Not Available Not Available Not Available estradiol 0.5 mg tablet 01/07 completed Not Available Not Available Not Available ergocalcife rol (vitamin D2) 1,250 mcg (50,000 unit) capsule TAKE 1 CAPSULE BY MOUTH ONE TIME PER WEEK 2023 active Not Available Not Available Not Avai lable methylpredn isolone 4 mg tablets in a dose pack Use as directed 09/09 completed Not Available Not Available Not Available fluoxetine 20 mg capsule 07/05 completed Not Available Not Available Not Available sertraline 50 mg tablet Take 1 tablet every day by oral route. 01/08 completed Not Available Not Available Not Available amoxicillin 875 mg-potassiu m clavulanate 125 mg tablet TAKE 1 TABLET BY MOUTH EVERY 12 HOURS 01/08 completed Not Available Not Available Not Available aripiprazol e 10 mg tablet TAKE 1 TABLET BY MOUTH EVERY DAY FOR 30 DAYS 01/08 completed Not Available Not Available Not Available aripiprazol e 5 mg tablet TAKE 1 TABLET BY MOUTH EVERY DAY IN THE MORNING 01/08 completed Not Available Not Available Not Available Ciprodex 0.3 %-0.1 % ear drops,suspe nsion 07/05 completed Not Available Not Available Not Available bupropion HCl XL 300 mg 24 hr tablet, extended release TAKE ONE TABLET BY MOUTH ONE TIME DAILY 09/09 completed Not Available Not Available Not Available bupropion HCl XL 150 mg 24 hr tablet, extended release 1 po daily 09/09 completed Not Available Not Available Not Available topiramate 50 mg tablet Take 1 tablet twice a day by oral route. 07/05 completed Not Available Not Available Not Available pregabalin 200 mg capsule TAKE 1 CAPSULE BY MOUTH THREE TIMES A DAY active Not Available Not Available No t Available Lyrica 50 mg capsule Take 4 capsules twice a day by oral route. 2013 active Not Available Not Available Not Avai lable Lyrica 100 mg capsule Take 1 capsule 3 times a day by oral route. 06/18 completed Not Available Not Available Not Available aripiprazol e 2 mg tablet TAKE 1 TABLET BY MOUTH EVERY DAY AT BEDTIME FOR 30 DAYS 01/08 completed Not Available Not Available Not Available venlafaxine ER 150 mg tablet,exte nded release 24 hr 09/28 completed Not Available Not Available Not Available Savella 100 mg tablet Take 1 tablet twice a day by oral route. 10/02 completed Not Available Not Available Not Available Savella 50 mg tablet TAKE 1 TABLET BY MOUTH TWICE DAILY 10/02 completed Not Available Not Available Not Available armodafinil 150 mg tablet TAKE 1 TABLET BY MOUTH EVERY DAY 01/07 completed Not Available Not Available Not Available Savella 12.5 mg (5)-25 mg(8)-50mg( 42) tablets in a dose pack U UTD active Not Available Not Available Not Available lurasidone 40 mg tablet TAKE 1 TABLET BY MOUTH EVERY DAY AT DINNER FOR 30 DAYS active Not Available Not Available No t Available lurasidone 20 mg tablet TAKE 1 TABLET BY MOUTH EVERY DAY WITH DINNER 01/08 completed Not Available Not Available Not Available Mucus DM 30 mg-600 mg tablet,exte nded release TAKE 1 TABLET BY MOUTH EVERY 12 HOURS NEEDED FOR COUGH 07/05 completed Not Available Not Available Not Available Xulane 150 mcg-35 mcg/24 hr transdermal patch APPLY 1 PATCH EVERY WEEK active Not Available Not Available No t Available Fluvirin 6733-7607 45 mcg (15 mcg x 3)/0.5 mL intramuscul ar suspension INJECT 0.5 ML INTRAMUSC ULARLY DIRECTED. active Not Available Not Available No t Available Rexulti 2 mg tablet Take 1 tablet every day by oral route. 01/08 completed Not Available Not Available Not Available Linzess 72 mcg capsule Take by oral route for 30 days. 01/07 completed Not Available Not Available Not Available Trulance 3 mg tablet Take 1 tablet every day by oral route. 07/05 completed Not Available Not Available Not Available Bydureon BCise 2 mg/0.85 mL subcutaneou s auto-inject or Inject 2 mg every week by subcutane ous route. 01/08 completed Not Available Not Available Not Available Ubrelvy 50 mg tablet Take 1 tablet every day by oral route as needed. 07/05 completed Not Available Not Available Not Available Wegovy 0.25 mg/0.5 mL subcutaneou s pen injector Inject 0.25 mg every week by subcutane ous route. 01/08 completed Not Available Not Available Not Available Vitals Date Recorded Body mass index (BMI) Body height Oxygen saturation Oxygen saturation in Arterial blood by Pulse oximetry Heart rate Body temperature Body weight Systolic blood pressure Diastolic blood pressure Provider Name and Address Organization Details Last Updated DateTime 3 32.4 kg/m2 165.1 cm 97 % 97 % 93 /min 98.4 [degF] 77114.5 1 g 118 mm[Hg] 82 mm[Hg] Not Available [facility] 3 08:09:52 Date Recorded Body weight Body mass index (BMI) Body height Body temperature Heart rate Oxygen saturation Oxygen saturation in Arterial blood by Pulse oximetry Systolic blood pressure Diastolic blood pressure Provider Name and Address Organization Details Last Updated DateTime 3 473776. 51 g 36.9 kg/m2 165.1 cm 97.6 [degF] 80 /min 98 % 98 % 110 mm[Hg] 72 mm[Hg] Kamille hartman CMA [place] [facility] 3 15:37:13 Date Recorded Body height Body mass index (BMI) Body weight Body temperature Heart rate Oxygen saturation Oxygen saturation in Arterial blood by Pulse oximetry Systolic blood pressure Diastolic blood pressure Provider Name and Address Organization Details Last Updated DateTime 3 165.1 cm 36.8 kg/m2 614678. 91 g 98.1 [degF] 107 /min 96 % 96 % 136 mm[Hg] 78 mm[Hg] Kaur Duvall MA [facility] 3 12:20:13 Date Recorded Body height Body mass index (BMI) Body weight Body temperature Heart rate Oxygen saturation Oxygen saturation in Arterial blood by Pulse oximetry Systolic blood pressure Diastolic blood pressure Provider Name and Address Organization Details Last Updated DateTime 4 165.1 cm 33.9 kg/m2 21299.8 4 g 97.9 [degF] 67 /min 97 % 97 % 120 mm[Hg] 88 mm[Hg] Traci Centeno RN [place] [employer] 4 15:08:03 Social History Question Answer Notes LastModified by [facility] Details LastModified Time Tobacco Smoking Status Never Smoker Not Available [facility] 05/23/2022 08:07:17 What Is Your Level Of Alcohol Consumption? Occasional [id number] Information not available 05/23/2022 How Many Years Have You Consumed Alcohol? 21 [id number] Information not available 05/23/2022 What Is Your Level Of Caffeine Consumption? Occasional [id number] Information not available 05/23/2022 What Type Of Diet Are You Following? REGULAR [id number] Information not available 05/23/2022 Have You Ever Been Counseled For Unhealthy Alcohol Use? No [id number] Information not available 05/23/2022 Do You Use Any Illicit Or Recreational Drugs? No [id number] Information not available 05/23/2022 Have You Recently Traveled Abroad? No [id number] Information not available 05/23/2022 Do You Have Any Dietary Restrictions? No [id number] Information not available 05/23/2022 How Many Days In The Past Year Have You Consumed 4 Or More Drinks? 0 [id number] Information not available 05/23/2022 Sex: Unknown Functional Status Question Answer Note LastModified by [facility] Details LastModified Time What is your exercise level? None [id number] Information not available 05/23/2022 Mental Status None recorded. Family History Relationship Description Onset Age of this Age Resolved Age Notes LastModified by Organization Details LastModified Time Father No current problems or disability [id number] Not available 05/23/2022 08:07:37 Mother No current problems or disability [id number] Not available 05/23/2022 08:07:37 Medical History No medical history recorded. Gynecological HistoryNo gynecological history recorded. Obstetrics History GPAL:G 0 P 0 0 0 0 Immunizations Vaccine Type Date Status Note Provider Nam e and Address Organization Details Recorded Time Hep A, adult 10/14/2012 completed Kamille Pabon, [employer] [place], [place] [facility] 01/07/2023 15:37:17 Hep A, adult 10/15/2011 completed Not Available [facility] 05/23/2022 08:14:56 Hep A, adult 03/28/2011 completed Not Available [facility] 05/23/2022 08:14:56 Past Encounters Encounter ID Performer Location Encounter Start Date Encounter Closed Date Diagnosis/Indication Diagnosis SNOMED-CT Code Diagnosis ICD10 Code Diagnosis Note [id number] [facility] [address] [place] [address] [place] [address] 07/05/2021 00:00:00 07/05/2021 09:44:28 [id number] Deanna Valencia MD [facility] Jac salvatore [address] [place] [address] [place] [address] 01/07/2023 15:28:49 01/07/2023 16:02:18 Adult health examination 345509814 Z00.00 Hyperlipidemia 00287796 E78.5 Obesity 882930310 E66.9 Screening for malignant neoplasm of colon 716780478 Z12.11 Family his tory of diabetes mellitus type 2 017750891 Z83.3 [id number] CARYN King [facility] [address] [place] [address] [place] [address] 02/18/2023 11:59:27 02/18/2023 12:29:03 Acute sinusitis 10794914 J01.90 [id number] CARYN King [facility] [address] [place] [address] [place] [address] 01/09/2024 14:56:59 01/09/2024 15:23:27 Primary fibromyalgia syndrome 47763101 M79.7 Screening mammography 24 586508 Z12.31 Hyperlipidemia 27919440 E78.5 Adult heal th examination 530529933 Z00.00 Peripheral nerve disease 686939267 G64 Insomnia 720402945 G47.0 0 Depressive disorder 3548 9007 F32.A Anemia 107897897 D64.9 Health Concerns Section Related Observation LastModified by Organization Detai ls LastModified Time None Recorded Concern Status LastModified by Organization Details LastModified Time None Recorded Advance Directives Directive None Recorded Payers Encounter Date Sequence Insurance Name Policy Number Policy Swanson Covered Member ID Swanson Member ID Guarantor Name 01/07/2023 1 *SELF PAY* Di ane Cindi Sharma 02/18/2023 1 *SELF PAY* Di ane R Heidys 01/09/2024 1 *SELF PAY* Di ane R Sands Notes Date Note Type Note Provider Name and Address Organization Details Recorded Time 01/07/2023 text/html Here today for a physical. Wants to know what her options for weight loss. Is due for BW. Going to see [employer] and they will send her for mammogram. No fmhx of colon cancer wants to do cologuard.Has developed a tolerance to pregabalin. It is not working like used to it. Lives with fibromyalgia.[facility] Deanna Valencia MD [address], [place], [address], [employer] 01/07/2023 21:16:56 02/18/2023 text/html sinus pressure drainage , no fever CARYN King [address], [place], [address], [employer] 02/21/2023 15:55:11 01/09/2024 text/html needs refills CARYN King [address], [place], [address], [employer] 02/03/2024 16:42:58 OBGyn Episode No OBEpisode recorded.
== END 2024-05-12 14:06 | disposition home or self-care (01) ==
LOC: ANHIMG 14:06
PROVIDERS: PCP Physician Assistant; Visit Provider Physician Assistant
DX: Z12.31 Encounter for screening mammogram for malignant neoplasm of breast (principal)
CPT/HCPCS: 77063; 77067